=== PATIENT | female | born 1960 | race Caucasian/White ===

== ENCOUNTER → 2020-09-15 11:24 | Outpatient (CLI) | payer OTHER, SELFPAY ==
--- NOTE | ~2020-09-15 | MM_ITS ---
EXAMINATION: MM screening sean BI w [facility] HISTORY: Screening TECHNIQUE: Craniocaudal and mediolateral oblique 3-D tomosynthesis images were obtained and synthetic 2-D images were generated. CAD analysis was submitted and interpreted. COMPARISON: Comparison to multiple prior studies sequentially, with oldest reviewed study dated 02/24. BREAST PARENCHYMAL COMPOSITION: There are scattered areas of fibroglandular density. FINDINGS: There is no evidence of suspicious mass, calcification, or architectural distortion to sugg est malignancy in either breast. There has been no suspicious interval change. IMPRESSION: 1. No mammographic evidence of malignancy. 2. Recommend routine screening mammography in one year. BI-RADS Category 1: Negative Reviewed, dictated and finalized at location A.
== END ==
PROVIDERS: PCP Nurse Practitioner Family; Visit Provider Nurse Practitioner Family
DX: Z12.31 Encounter for screening mammogram for malignant neoplasm of breast (principal)
CPT/HCPCS: 77063; 77067

== ENCOUNTER → 2022-01-12 13:19 | Outpatient (CLI) | payer OTHER, SELFPAY ==
--- NOTE | ~2022-01-12 | XR_ITS ---
XR_[id number]_CR DATE: 01/12/2022 14:07 INDICATION: Neck and right shoulder pain for one month TECHNIQUE: Standing AP, lateral and open-mouth views COMPARISON: None FINDINGS: There is straightening of the cervical spine which may be due to muscle spasm. There is mil d levoscoliosis of the cervical and upper thoracic spine. There is minimal anterolisthesis at C3-4. There is mild to moderate degenerative disc disease at C4-5, C5-6 and C6-7. There is uncovertebral joint spurring of moderate degree at C5-6. There is degenerative change at the apophyseal joints. C1 and C2 are normally aligned and the odontoid process is intact. No fracture or dislocation or lock ed facet or prevertebral soft tissue swelling. IMPRESSION: Straightening and mild levoscoliosis Mild to moderate degenerative disc disease of the mid to lower cervical spine Minimal anterolisthesis at C3-4 Moderate degenerative change at the uncovertebral joints at C5-6 Due to change at the apophyseal joints Reviewed, dictated and finalized at Location A. Reviewed, dictated and finalized at location B. MASTER
--- NOTE | ~2022-01-12 | XR_ITS ---
XR lumbar spine 2-3V DATE: 01/12/2022 14:08 INDICATION: Back pain TECHNIQUE: Standing AP, lateral views COMPARISON: None FINDINGS: Mild levoscoliosis. Osteopenia. Normal alignment of the lumbar spine. No fracture or bone d estruction or spondylolisthesis. Included lower thoracic and lumbar pedicles are intact. There is mil d degenerative spurring of the lumbar spine. Moderate loss of interspace height at L5-S1. The sacroiliac joints are intact. IMPRESSION: Osteopenia Mild levoscoliosis of lumbar spine Mild degenerative change Reviewed, dictated and finalized at location B. ER GRINDER
--- NOTE | ~2022-01-12 | XR_ITS ---
XR thoracic spine 2V DATE: 01/12/2022 14:08 INDICATION: Back pain TECHNIQUE: AP and lateral views COMPARISON: 01/12/2022 cervical spine FINDINGS: There is osteopenia. There is mild degenerative spurring of the thoracic spine. No fracture or dislocation or bone destruc tion. The thoracic pedicles are intact. No paraspinal soft tissue thickening. IMPRESSION: Osteopenia Mild degenerative spurring Reviewed, dictated and finalized at location B. AIRCRAFT SERVICER
== END ==
PROVIDERS: PCP Nurse Practitioner Family; Visit Provider Chiropractor
DX: M54.50 Low back pain, unspecified (principal); M85.88 Other specified disorders of bone density and structure, other site; M41.86 Other forms of scoliosis, lumbar region; M46.04 Spinal enthesopathy, thoracic region; M53.82 Other specified dorsopathies, cervical region; M41.82 Other forms of scoliosis, cervical region; M50.322 Other cervical disc degeneration at C5-C6 level; M43.12 Spondylolisthesis, cervical region
CPT/HCPCS: 72040; 72070; 72100

== ENCOUNTER → 2022-01-28 13:35 | Outpatient (CLI) | payer OTHER, SELFPAY ==
--- NOTE | ~2022-01-28 | MM_ITS ---
EXAMINATION: MM screening sean BI w [facility] HISTORY: Screening TECHNIQUE: Craniocaudal and mediolateral oblique 3-D tomosynthesis images were obtained and synthetic 2-D images were generated. CAD analysis was submitted and interpreted. COMPARISON: Comparison to multiple prior studies sequentially, with oldest reviewed study dated 09/03. BREAST PARENCHYMAL COMPOSITION: There are scattered areas of fibroglandular density. FINDINGS: There is no evidence of suspicious mass, calcification, or architectural distortion to sugg est malignancy in either breast. There has been no suspicious interval change. IMPRESSION: 1. No mammographic evidence of malignancy. 2. Recommend routine screening mammography in one year. BI-RADS Category 1: Negative Reviewed, dictated and finalized at location B. [employer]
== END ==
PROVIDERS: PCP Nurse Practitioner Family; Visit Provider Nurse Practitioner Family
DX: Z12.31 Encounter for screening mammogram for malignant neoplasm of breast (principal)
CPT/HCPCS: 77063; 77067